=== PATIENT | female | born 1975 | race Hispanic/Latino ===

== ENCOUNTER 2018-05-20 08:36 | Emergency (ER) | payer SELFPAY ==
[2018-05-20 09:18] LABS: #Basophils 0.1 thou/uL (0.0-0.2); #Eosinphils 0.1 thou/uL (0.0-0.7); #Lymphocytes 1.4 thou/uL (1.20-3.40); #Monocytes 0.4 thou/uL (0.11-0.59); #Neutrophils 6.6 thou/uL (1.40-6.50); %Basophils 0.7 % (0.0-1.0); %Eosinophils 1.5 % (0.0-10.0); %Lymphocytes 16.6 % (21.0-51.0); %Monocytes 4.2 % (0.0-10.0); Hemoglobin 10.2 g/dL (12.0-16.0); Mean Corpuscular Hemoglobin 20.7 pg (27.0-31.0); Mean Platelet Volume 10.4 fL (7.4-10.4); Platelet Count 322 thou/uL (130-400); RBC Distribution Width 21.6 % (11.5-14.5); Red Blood Cell (RBC) Count 4.91 mill/uL (4.20-5.40); White Blood Cell (WBC) Count 8.6 thou/uL (4.8-10.8)
[2018-05-20 09:29] LABS: ALT (SGPT) 12 U/L (8-55); AST (SGOT) 17 U/L (5-34); Albumin 4.1 g/dL (3.5-5.0); Alkaline Phosphatase 72 U/L (40-150); Anion Gap 11 mmol/L (10-20); BUN (Urea Nitrogen) 13 mg/dL (7.0-18.7); Bilirubin, Total 0.6 mg/dL (0.2-1.2); Calc. Creatinine Clearance 0 mL/min (70-130); Calcium 8.6 mg/dL (7.8-10.44); Carbon Dioxide 22 mmol/L (22-29); Chloride 108 mmol/L (98-107); Estimated GFR-MDRD 86; Globulin 2.7 g/dL (2.4-3.5); Glucose 126 mg/dL (70-105); Potassium 3.6 mmol/L (3.5-5.1); Protein, Total 6.8 g/dL (6.0-8.3); Sodium 137 mmol/L (136-145)
[2018-05-20] MEDS ORDERED: Ondansetron HCl/PF 4 MG/2 ML Vial ONE (09:33)
[2018-05-20] MEDS ORDERED: Ketorolac Tromethamine 30 MG/ML VIAL ONE (09:33)
[2018-05-20 10:01] LABS: Anisocytosis SLIGHT = 6-15 cells (100X) (0-5/hpf); MDiff Complete? YES; Microcytosis MODERATE=15-30 cells (100X) (0-5/hpf); Polychromasia SLIGHT = 2-3 cells (100X) (0-2/hpf)
[2018-05-20 10:08] LABS: Bilirubin Negative (Negative); Blood, Urine Negative (Negative); Glucose, Urine (Dipstick) Negative (Negative); Leukocyte Negative (Negative); Nitrite Negative (Negative); Protein, Urine (Dipstick) Negative (Neg-Trace); Urobilinogen 0.2 mg/dL (0.2-1.0)
[2018-05-20 10:10] LABS: Clarity Clear (Clear); Specific Gravity, Urine 1.026 (1.002-1.036)
[2018-05-20 10:11] LABS: Pregnancy Test - Urine (BHCG) Negative (Negative); Pregu Control Background? CLEAR/WHITE (CLR/WHITE); Pregu Control Bar Appear? YES (CONTROL BAR); Specific Gravity 1.026 (1.002-1.036)
--- NOTE | 2018-05-20 10:59 | CT ---
CT ABDOMEN AND PELVIS WITH IV CONTRAST: HISTORY: Left lower quadrant pain. FINDINGS: The lung bases are clear. The patient is post cholecystectomy. The liver demonstrates changes of fa tty liver without mass. The spleen, pancreas, adrenal glands, and kidneys are normal. A normal-appe aring appendix is present. Uterus and right ovary are visualized. No free air, free fluid, or lymph adenopathy is seen. There is inflammatory change in the left lower quadrant anterior to the colon wh ich contains fat and thrombosed vein, consistent with epiploic appendicitis. No evidence of aneurysmal dilatation of the abdominal aorta is seen. There are mild degenerative asael nges in the spine. IMPRESSION: 1. Epiploic appendicitis in the left lower quadrant. 2. Fatty liver. POS: [facility]
[2018-05-20] MEDS ORDERED: ISOVUE-370 76%-LOCM 1 ML ONE (13:30)
== END 2018-05-20 10:58 | disposition home or self-care (01) ==
LOC: ERS 08:36
DX: K63.89 Other specified diseases of intestine (principal); G43.909 Migraine, unspecified, not intractable, without status migrainosus
CPT/HCPCS: 36415; 74177; 80053; 81003; 81025; 85025; 96374; 96375; J1885; J2405

== ENCOUNTER 2018-09-06 11:02 | Emergency (ER) | payer SELFPAY ==
[2018-09-06] MEDS ORDERED: Ondansetron PF 4 MG/2 ML Vial ONE (11:17)
[2018-09-06] MEDS ORDERED: Morphine 4 MG/ML VIAL ONE (11:17)
[2018-09-06 11:31] LABS: #Basophils 0.1 thou/uL (0.0-0.2); #Eosinphils 0.1 thou/uL (0.0-0.7); #Lymphocytes 1.6 thou/uL (1.20-3.40); #Monocytes 0.4 thou/uL (0.11-0.59); #Neutrophils 6.9 thou/uL (1.40-6.50); %Basophils 0.5 % (0.0-1.0); %Eosinophils 1.1 % (0.0-10.0); %Monocytes 4.8 % (0.0-10.0); %Neutrophils 75.6 % (42.0-75.0); Hemoglobin 11.4 g/dL (12.0-16.0); Mean Corpuscular HGB CONC 30.7 g/dL (32.0-36.0); Mean Corpuscular Hemoglobin 23.1 pg (27.0-31.0); Mean Corpuscular Volume 75.1 fL (78.0-98.0); Mean Platelet Volume 8.4 fL (7.4-10.4); Platelet Count 404 thou/uL (130-400); RBC Distribution Width 14.5 % (11.5-14.5); Red Blood Cell (RBC) Count 4.92 mill/uL (4.20-5.40); White Blood Cell (WBC) Count 9.1 thou/uL (4.8-10.8)
[2018-09-06 11:50] LABS: BHCG - Serum Negative (NEGATIVE); Pregs Control Background? CLEAR/WHITE (CLR/WHITE); Pregs Control Bar Appear? YES (CONTROL BAR)
[2018-09-06 12:09] LABS: ALT (SGPT) 14 U/L (8-55); AST (SGOT) 17 U/L (5-34); Albumin 4.4 g/dL (3.5-5.0); Alkaline Phosphatase 80 U/L (40-150); Anion Gap 10 mmol/L (10-20); BUN (Urea Nitrogen) 12 mg/dL (7.0-18.7); Bilirubin, Total 0.5 mg/dL (0.2-1.2); Calc. Creatinine Clearance 0 mL/min (70-130); Carbon Dioxide 24 mmol/L (22-29); Chloride 109 mmol/L (98-107); Estimated GFR-MDRD 88; Globulin 3.2 g/dL (2.4-3.5); Glucose 109 mg/dL (70-105); Lipase 44 U/L (8-78); Potassium 3.8 mmol/L (3.5-5.1); Protein, Total 7.6 g/dL (6.0-8.3); Sodium 139 mmol/L (136-145)
[2018-09-06] MEDS ORDERED: HYDROcodone/Acetaminophen 5/325 mg Tablet ONE (12:50)
[2018-09-06] MEDS ORDERED: metroNIDAZOLE 250 MG TAB ONE (12:50)
[2018-09-06 13:03] LABS: Bilirubin Negative (Negative); Blood, Urine Negative (Negative); Clarity CLEAR (Clear); Glucose, Urine (Dipstick) Negative (Negative); Leukocyte Trace (Negative); Nitrite Negative (Negative); Protein, Urine (Dipstick) Negative (Neg-Trace); Specific Gravity, Urine 1.044 (1.002-1.036)
[2018-09-06 13:05] LABS: Bacteria/HPF Rare-Few HPF (None Seen); Hyaline Casts/LPF 0-3 HYALINE CAST LPF (0-3 Hyaline); Pathc Cast-AUWi Flag 0.14 (0-2.49); RBC/HPF 0-3 HPF (0-3); Squamous Epithelial 0-3 HPF (0-3); WBC/HPF 0-3 HPF (0-3)
--- NOTE | 2018-09-06 13:22 | CT ---
ABDOMEN CT WITH CONTRAST PELVIC CT WITH CONTRAST: Date: 09/06/18 HISTORY: Two days of left lower quadrant pain, worsening. COMPARISON: 07/09/15. FINDINGS: CT ABDOMEN: Clear lung bases. Normal heart size. No significant pericardial fluid. The descending thoracic aorta and abdominal aorta have a normal caliber. No periaortic fat stranding. Gallbladder is surgically absent. Portal vein is patent. Diffuse hypoattenuation of the liver due to hepatic steatosis. No hepatic masses. Spleen, pancreas, a nd adrenal glands are unremarkable. No gastrohepatic, retrocrural, or periportal lymphadenopathy. Small umbilical hernia containing mesenteric fat. No mesenteric mass, lymphadenopathy, or free air. T here is stranding of the left lower quadrant mesentery adjacent to the mid to distal descending colon . Symmetric enhancement of the kidneys. Redemonstration of a right extrarenal pelvis. Bilaterally, no o bstructive uropathy. Limited evaluation of the alimentary canal by the lack of oral contrast. No evidence of small bowel o bstruction. Ileocecal junction is normal. Normal caliber appendix emanates from the cecal apex. There is no evidence of significant colonic mucosal thickening. There is pericolonic fat stranding involvi ng the mid to distal descending colon. Epiploic appendagitis is suspected. PELVIC CT: Heterogeneous and enlarged uterus is identified. The possibility of uterine leiomyoma cannot be compl etely excluded. Unremarkable urinary bladder. No pelvic lymphadenopathy, free air, or free fluid. IMPRESSION: 1. Stranding involving the left lower quadrant pericolonic fat which may represent epiploic appendag itis. No evidence of abscess or bowel perforation. 2. Normal caliber appendix. 3. Slightly enlarged heterogeneous uterus. Correlate for uterine leiomyoma with nonemergent pelvic u ltrasound. POS: [facility]
[2018-09-06] MEDS ORDERED: Iopamidol 370 76% 100 ML VIAL ONE (16:55)
== END 2018-09-06 13:10 | disposition home or self-care (01) ==
LOC: ERS 11:02
DX: K63.89 Other specified diseases of intestine (principal); G43.909 Migraine, unspecified, not intractable, without status migrainosus
CPT/HCPCS: 74177; 80053; 81003; 81015; 83690; 84703; 85025; 87077; 87086; 96361; 96374; 96375; J1956; J2270; J2405

== ENCOUNTER 2019-07-10 09:07 | Outpatient (CLI) | payer MEDICAID ==
--- NOTE | 2019-07-10 10:36 | MMO ---
Bilateral MAMMO Bilat Screen [facility]. CLINICAL HISTORY: Patient is 44 years old and is seen for screening. The patient has no family history of breast cancer. The patient has no personal history of cancer. VIEWS: The views performed were: bilateral craniocaudal and bilateral mediolateral oblique. FILMS COMPARED: The present examination has been compared to prior imaging studies performed at [facility] on 06/09/2012 and 04/16/2017. This study has been interpreted with the assistance of computer-aided detection. MAMMOGRAM FINDINGS: The breasts are heterogeneously dense, which could obscure a lesion on mammography. There are no suspicious masses, suspicious calcifications, or new areas of architectural distortion. IMPRESSION: THERE IS NO MAMMOGRAPHIC EVIDENCE OF MALIGNANCY. A ROUTINE FOLLOW-UP MAMMOGRAM IN 1 YEAR IS RECOMMENDED. ACR BI-RADS Category 1 - Negative MAMMOGRAPHY NOTE: 1. A negative mammogram report should not delay a biopsy if a dominant of clinically suspicious mass is present. 2. Approximately 10% to 15% of breast cancers are not detected by mammography. 3. Adenosis and dense breasts may obscure an underlying neoplasm. Reported by: DEZ WHEELER MD Electonically Signed: [id number]
== END 2019-07-10 09:08 | disposition home or self-care (01) ==
LOC: BICMAMMO 09:07
DX: Z12.31 Encounter for screening mammogram for malignant neoplasm of breast (principal)
CPT/HCPCS: 77067

== ENCOUNTER 2019-10-23 10:49 | Emergency (ER) | payer MEDICAID ==
[2019-10-23] MEDS ORDERED: Acetaminophen 500 MG TAB ONE (12:03)
== END 2019-10-23 13:04 | disposition home or self-care (01) ==
LOC: ERS 10:49
DX: J06.9 Acute upper respiratory infection, unspecified (principal); G43.909 Migraine, unspecified, not intractable, without status migrainosus
CPT/HCPCS: 87804; 99283

== ENCOUNTER 2019-11-14 07:02 | Emergency (ER) | payer MEDICAID ==
[2019-11-14] MEDS ORDERED: Ondansetron ODT 4 MG TAB ONE (07:39)
[2019-11-14] MEDS ORDERED: Ibuprofen 200 MG TAB ONE (07:39)
[2019-11-14] MEDS ORDERED: Acetaminophen 500 MG TAB ONE (08:19)
== END 2019-11-14 09:15 | disposition home or self-care (01) ==
LOC: ERS 07:02
DX: J11.1 Influenza due to unidentified influenza virus with other respiratory manifestations (principal)
CPT/HCPCS: 87804; 99283; Q0162

== ENCOUNTER 2020-07-12 10:40 | Outpatient (CLI) | payer MEDICAID ==
--- NOTE | 2020-07-12 12:02 | MMO ---
Bilateral MAMMO Bilat Screen [facility]. CLINICAL HISTORY: Patient is 45 years old and is seen for screening. The patient has no family history of breast cancer. The patient has no personal history of cancer. VIEWS: The views performed were: bilateral craniocaudal and bilateral mediolateral oblique. FILMS COMPARED: The present examination has been compared to prior imaging studies performed at [facility] on 06/09/2012, 04/16/2017 and 07/10/2019. This study has been interpreted with the assistance of computer-aided detection. MAMMOGRAM FINDINGS: The breasts are heterogeneously dense, which could obscure a lesion on mammography. There are no suspicious masses, suspicious calcifications, or new areas of architectural distortion. IMPRESSION: THERE IS NO MAMMOGRAPHIC EVIDENCE OF MALIGNANCY. A ROUTINE FOLLOW-UP MAMMOGRAM IN 1 YEAR IS RECOMMENDED. ACR BI-RADS Category 1 - Negative MAMMOGRAPHY NOTE: 1. A negative mammogram report should not delay a biopsy if a dominant of clinically suspicious mass is present. 2. Approximately 10% to 15% of breast cancers are not detected by mammography. 3. Adenosis and dense breasts may obscure an underlying neoplasm. Reported by: SANG BRADFORD MD Electonically Signed: [id number]
== END 2020-07-12 10:41 | disposition home or self-care (01) ==
LOC: BICMAMMO 10:40
PROVIDERS: ATTEND Nurse Practitioner Family
DX: Z12.31 Encounter for screening mammogram for malignant neoplasm of breast (principal)
CPT/HCPCS: 77067

== ENCOUNTER 2020-10-16 17:57 | Emergency (ER) | payer MEDICAID, SELFPAY ==
[2020-10-16] MEDS ORDERED: diphenhydrAMINE 50 MG/ML VIAL ONE (18:44)
[2020-10-16] MEDS ORDERED: Metoclopramide HCl 10 MG/2 ML VIAL ONE (18:44)
== END 2020-10-16 21:18 | disposition home or self-care (01) ==
LOC: ERS 17:57
DX: G43.909 Migraine, unspecified, not intractable, without status migrainosus (principal)
CPT/HCPCS: 96365; 96375; J1200; J2765

== ENCOUNTER 2021-08-08 08:54 | Outpatient (CLI) | payer MEDICAID | END 2021-08-08 08:55 | disposition home or self-care (01) | LOC: BICMAMMO 08:54 | PROVIDERS: ATTEND Nurse Practitioner Family | DX: Z12.31 Encounter for screening mammogram for malignant neoplasm of breast (principal) | CPT/HCPCS: 77066; G0279 ==

== ENCOUNTER 2022-02-06 13:37 | Outpatient (CLI) | payer MEDICAID | END 2022-02-06 13:38 | disposition home or self-care (01) | LOC: BICULT 13:37 | PROVIDERS: ATTEND Nurse Practitioner Women's Health | DX: N93.9 Abnormal uterine and vaginal bleeding, unspecified (principal); N88.8 Other specified noninflammatory disorders of cervix uteri | CPT/HCPCS: 76856; 93976 ==

== ENCOUNTER 2022-09-08 11:08 | Outpatient (CLI) | payer MEDICAID | END 2022-09-08 11:09 | disposition home or self-care (01) | LOC: BICMAMMO 11:08 | PROVIDERS: ATTEND Nurse Practitioner Family | DX: Z12.31 Encounter for screening mammogram for malignant neoplasm of breast (principal) | CPT/HCPCS: 77067 ==

== ENCOUNTER 2022-11-27 10:12 | Emergency (ER) | payer MEDICAID, SELFPAY ==
[2022-11-27 10:56] LABS: #Eosinphils 0.1 thou/uL (0.0-0.7); #Lymphocytes 1.7 thou/uL (1.20-3.40); #Monocytes 0.4 thou/uL (0.11-0.59); #Neutrophils 6.2 thou/uL (1.40-6.50); %Basophils 0.3 % (0.0-1.0); %Eosinophils 1.3 % (0.0-10.0); %Lymphocytes 20.5 % (21.0-51.0); %Monocytes 4.9 % (0.0-10.0); %Neutrophils 72.9 % (42.0-75.0); Hemoglobin 15.6 g/dL (12.0-16.0); Mean Corpuscular HGB CONC 33.5 g/dL (32.0-36.0); Mean Corpuscular Hemoglobin 29.2 pg (27.0-31.0); Mean Corpuscular Volume 87.1 fl (78.0-98.0); Mean Platelet Volume 7.9 fL (7.4-10.4); Platelet Count 318 10x3/uL (130-400); RBC Distribution Width 12.7 % (11.5-14.5); Red Blood Cell (RBC) Count 5.33 mill/uL (4.20-5.40); White Blood Cell (WBC) Count 8.4 10x3/uL (4.8-10.8)
[2022-11-27] MEDS ORDERED: Ondansetron PF 4 MG/2 ML Vial ONE (11:09)
[2022-11-27] MEDS ORDERED: Morphine 4 MG/ML VIAL ONE (11:09)
[2022-11-27 11:18] LABS: ALT (SGPT) 22 U/L (8-55); AST (SGOT) 22 U/L (5-34); Albumin 4.3 g/dL (3.5-5.0); Alkaline Phosphatase 89 U/L (40-110); Anion Gap 12 mmol/L (10-20); BUN (Urea Nitrogen) 9 mg/dL (7.0-18.7); Bilirubin, Total 0.4 mg/dL (0.2-1.2); Calc. Creatinine Clearance 0 mL/min (70-130); Calcium 8.8 mg/dL (7.8-10.44); Carbon Dioxide 18 mmol/L (22-29); Chloride 111 mmol/L (98-107); Estimated GFR 111; Globulin 2.9 g/dL (2.4-3.5); Glucose 110 mg/dL (70-105); Lipase 50 U/L (8-78); Potassium 3.7 mmol/L (3.5-5.1); Protein, Total 7.2 g/dL (6.0-8.3); Sodium 137 mmol/L (136-145)
[2022-11-27 12:33] LABS: SARS-CoV-2 NAA Rapid Test Not Detected (NotDetected)
[2022-11-27] MEDS ORDERED: Lidocaine Viscous Sol 2% 15 ml UD Cup ONE (13:35)
[2022-11-27] MEDS ORDERED: Mag-Al 1200 mg/1200 mg/30 ML UDCUP ONE (13:35)
[2022-11-27 14:02] LABS: Troponin I Less than 0.010 ng/mL (< 0.028)
== END 2022-11-27 15:02 | disposition home or self-care (01) ==
LOC: ERS 10:12
DX: R07.9 Chest pain, unspecified (principal); Z20.822 Contact with and (suspected) exposure to COVID-19
CPT/HCPCS: 36415; 71045; 80053; 83690; 84484; 85025; 85379; 93005; 94760; 96374; 96375; J2270; J2405

== ENCOUNTER 2023-06-17 09:53 | Outpatient (CLI) | payer MEDICAID | END 2023-06-17 09:54 | disposition home or self-care (01) | LOC: ULT 09:53 | PROVIDERS: ATTEND Nurse Practitioner Women's Health | DX: R10.2 Pelvic and perineal pain (principal) | CPT/HCPCS: 76856 ==

== ENCOUNTER 2023-09-09 21:43 | Emergency (ER) | payer SELFPAY, OTHER ==
[2023-09-09 22:47] LABS: #Eosinphils 0.1 thou/uL (0.0-0.7); #Monocytes 0.6 thou/uL (0.11-0.59); #Neutrophils 6.8 thou/uL (1.40-6.50); %Basophils 0.3 % (0.0-1.0); %Eosinophils 1.3 % (0.0-10.0); %Lymphocytes 22.4 % (21.0-51.0); %Monocytes 6.3 % (0.0-10.0); %Neutrophils 69.3 % (42.0-75.0); Hematocrit 47.1 % (36.0-47.0); Hemoglobin 16.5 g/dL (12.0-16.0); Mean Corpuscular Hemoglobin 30.2 pg (27.0-31.0); Mean Corpuscular Volume 86.1 fl (78.0-98.0); Mean Platelet Volume 10.2 fL (7.4-10.4); Platelet Count 308 10x3/uL (130-400); RBC Distribution Width 12.7 % (11.5-14.5); Red Blood Cell (RBC) Count 5.47 mill/uL (4.20-5.40); White Blood Cell (WBC) Count 9.9 10x3/uL (4.8-10.8)
[2023-09-09] MEDS ORDERED: Acetaminophen 500 MG TAB ONE (22:53)
[2023-09-09] MEDS ORDERED: Prochlorperazine 10 MG/2 ML VIAL ONE (22:54)
[2023-09-09] MEDS ORDERED: diphenhydrAMINE 50 MG/ML VIAL ONE (22:54)
[2023-09-09 23:14] LABS: Troponin I Less than 0.010 ng/mL (< 0.028)
[2023-09-09 23:52] LABS: Chloride 107 mmol/L (98-107); Sodium 136 mmol/L (136-145)
[2023-09-09 23:53] LABS: Glucose 90 mg/dL (70-105)
[2023-09-09 23:54] LABS: Bacteria/HPF None Seen HPF (None Seen); Bilirubin Negative (Negative); Blood, Urine Negative (Negative); CAUTI Indications for Culture Alt mental st,lethar; Clarity Clear (Clear); Glucose, Urine (Dipstick) Normal (Negative); Ketone, Urine Negative (Negative); Leukocyte Negative Leu/uL (Negative); Nitrite Negative (Negative); Protein, Urine (Dipstick) Negative (Neg-Trace); RBC/HPF 0-3 HPF (0-3); Squamous Epithelial 0-3 HPF (0-3); Urobilinogen Normal mg/dL (Less than 2); WBC/HPF 0-3 HPF (0-3)
[2023-09-09 23:55] LABS: Anion Gap 17 mmol/L (10-20); Bilirubin, Total 0.2 mg/dL (0.2-1.2); Carbon Dioxide 19 mmol/L (22-29)
[2023-09-09 23:56] LABS: Alkaline Phosphatase 116 U/L (40-110)
[2023-09-09 23:57] LABS: Calc. Creatinine Clearance 0 mL/min (70-130); Estimated GFR 88
[2023-09-09 23:58] LABS: BUN (Urea Nitrogen) 13 mg/dL (7.0-18.7)
[2023-09-09 23:59] LABS: ALT (SGPT) 20 U/L (8-55); AST (SGOT) 64 U/L (5-34)
[2023-09-10 00:08] LABS: Potassium 3.6 mmol/L (3.5-5.1)
[2023-09-10 00:16] LABS: Albumin 3.9 g/dL (3.5-5.0); Protein, Total 6.6 g/dL (6.0-8.3)
[2023-09-10 00:17] LABS: Globulin 2.7 g/dL (2.4-3.5)
[2023-09-10 00:38] LABS: Urine Culture Reflex No No
== END 2023-09-10 02:16 | disposition home or self-care (01) ==
LOC: ERS 21:43
DX: G43.909 Migraine, unspecified, not intractable, without status migrainosus (principal); I10 Essential (primary) hypertension
CPT/HCPCS: 36415; 70450; 71045; 80053; 81001; 84484; 85025; 96374; 96375; J0780; J1200

== ENCOUNTER 2023-10-28 09:15 | Inpatient (IN) | payer MEDICAID, SELFPAY ==
[2023-10-28] MEDS ORDERED: Ondansetron PF 4 MG/2 ML Vial ONE ×2 (10:12→13:01)
[2023-10-28] MEDS ORDERED: Morphine 4 MG/ML VIAL ONE ×2 (10:12→13:01)
[2023-10-28 10:40] LABS: #Eosinphils 0.1 thou/uL (0.0-0.7); #Monocytes 0.6 thou/uL (0.11-0.59); #Neutrophils 8.9 thou/uL (1.40-6.50); %Basophils 0.3 % (0.0-1.0); %Eosinophils 1.2 % (0.0-10.0); %Lymphocytes 14.2 % (21.0-51.0); %Monocytes 5.1 % (0.0-10.0); %Neutrophils 78.8 % (42.0-75.0); Hematocrit 42.7 % (36.0-47.0); Hemoglobin 15.1 g/dL (12.0-16.0); Mean Corpuscular HGB CONC 35.4 g/dL (32.0-36.0); Mean Corpuscular Hemoglobin 29.9 pg (27.0-31.0); Mean Corpuscular Volume 84.6 fl (78.0-98.0); Platelet Count 317 10x3/uL (130-400); RBC Distribution Width 12.8 % (11.5-14.5); Red Blood Cell (RBC) Count 5.05 mill/uL (4.20-5.40); White Blood Cell (WBC) Count 11.3 10x3/uL (4.8-10.8)
[2023-10-28 10:40] LABS: ALT (SGPT) 20 U/L (8-55); AST (SGOT) 18 U/L (5-34); Albumin 4.1 g/dL (3.5-5.0); Alkaline Phosphatase 91 U/L (40-110); Anion Gap 14 mmol/L (10-20); BUN (Urea Nitrogen) 12 mg/dL (7.0-18.7); Bilirubin, Total 0.5 mg/dL (0.2-1.2); Calc. Creatinine Clearance 0 mL/min (70-130); Calcium 8.7 mg/dL (7.8-10.44); Carbon Dioxide 18 mmol/L (22-29); Chloride 110 mmol/L (98-107); Estimated GFR 95; Globulin 2.9 g/dL (2.4-3.5); Glucose 151 mg/dL (70-105); Lipase 46 U/L (8-78); Sodium 138 mmol/L (136-145)
[2023-10-28] MEDS ORDERED: Piperacillin/Tazobactam 4.5 GM VIAL ONE (10:57)
[2023-10-28] MEDS ORDERED: Sodium Chloride 0.9% 100 ML ONE (10:58)
[2023-10-28] MEDS ORDERED: Ketorolac Tromethamine 30 MG (1 mL) VIAL ONE (12:18)
[2023-10-28 14:06] LABS: Bacteria/HPF None Seen HPF (None Seen); Bilirubin Negative (Negative); Blood, Urine Negative (Negative); CAUTI Indications for Culture Pelvic or flank pain; Clarity Clear (Clear); Glucose, Urine (Dipstick) Normal (Negative); Ketone, Urine Negative (Negative); Leukocyte Negative Leu/uL (Negative); Nitrite Negative (Negative); Protein, Urine (Dipstick) Negative (Neg-Trace); RBC/HPF 0-3 HPF (0-3); Squamous Epithelial None Seen HPF (0-3); Urobilinogen Normal mg/dL (Less than 2); WBC/HPF 0-3 HPF (0-3)
[2023-10-28 14:09] LABS: Specific Gravity, Urine 1.046 (1.002-1.036)
[2023-10-28 14:10] LABS: Urine Culture Reflex No No
[2023-10-28] MEDS ORDERED: Iopamidol-370 76% 500 ML MDV (1 ML CHARGE) ONE (14:29)
[2023-10-28] MEDS ORDERED: Acetaminophen 325 MG TAB PO PRN (15:52)
[2023-10-28 16:34] VITALS: BMI 37.0
[2023-10-28] MEDS: Sodium Chloride 0.9% 1,000 ML IV SCH ×2 (17:16→21:18)
[2023-10-28] MEDS: Morphine 4 MG/ML VIAL SLOW IVP PRN ×2 (17:32→21:25)
[2023-10-28] MEDS: Ondansetron PF 4 MG/2 ML Vial IVP PRN (19:36)
[2023-10-28] MEDS: Ciprofloxacin Lactate/D5W 400 MG in Premix 1 BAG IVPB SCH (19:49)
[2023-10-28] MEDS: Ketorolac Tromethamine 30 MG (1 mL) VIAL IVP PRN (20:03)
[2023-10-28] MEDS: metroNIDAZOLE 500 MG in Premix 1 BAG IVPB SCH (21:18)
[2023-10-28] MEDS ORDERED: Ondansetron PF 4 MG/2 ML Vial IVP SCH (21:30)
[2023-10-29] MEDS: Ketorolac Tromethamine 30 MG (1 mL) VIAL IVP PRN ×2 (03:23→08:57)
[2023-10-29] MEDS: Sodium Chloride 0.9% 1,000 ML IV SCH ×4 (05:11→21:53)
[2023-10-29] MEDS: metroNIDAZOLE 500 MG in Premix 1 BAG IVPB SCH ×3 (05:38→21:48)
[2023-10-29] MEDS: Morphine 4 MG/ML VIAL SLOW IVP PRN ×3 (05:41→16:10)
[2023-10-29 06:40] LABS: #Eosinphils 0.1 thou/uL (0.0-0.7); #Monocytes 0.8 thou/uL (0.11-0.59); #Neutrophils 10.9 thou/uL (1.40-6.50); %Basophils 0.2 % (0.0-1.0); %Eosinophils 0.6 % (0.0-10.0); %Lymphocytes 10.7 % (21.0-51.0); %Monocytes 6.1 % (0.0-10.0); %Neutrophils 81.9 % (42.0-75.0); Hematocrit 38.2 % (36.0-47.0); Hemoglobin 13.1 g/dL (12.0-16.0); Mean Corpuscular HGB CONC 34.3 g/dL (32.0-36.0); Mean Platelet Volume 10.1 fL (7.4-10.4); Platelet Count 279 10x3/uL (130-400); RBC Distribution Width 12.7 % (11.5-14.5); Red Blood Cell (RBC) Count 4.37 mill/uL (4.20-5.40); White Blood Cell (WBC) Count 13.3 10x3/uL (4.8-10.8)
[2023-10-29 06:45] LABS: Mean Corpuscular Volume 87.4 fl (78.0-98.0)
[2023-10-29 07:02] LABS: Anion Gap 10 mmol/L (10-20); BUN (Urea Nitrogen) 6 mg/dL (7.0-18.7); Calc. Creatinine Clearance 137 mL/min (70-130); Calcium 8.3 mg/dL (7.8-10.44); Carbon Dioxide 21 mmol/L (22-29); Chloride 110 mmol/L (98-107); Estimated GFR 104; Glucose 95 mg/dL (70-105); Potassium 3.7 mmol/L (3.5-5.1); Sodium 137 mmol/L (136-145)
[2023-10-29] MEDS: Ciprofloxacin Lactate/D5W 400 MG in Premix 1 BAG IVPB SCH ×2 (08:56→20:32)
[2023-10-29] MEDS: Enoxaparin 40 MG (0.4 mL) SYRINGE SC SCH (08:57)
[2023-10-29] MEDS: traMADol HCl 50 MG TAB PO PRN ×2 (14:02→21:47)
[2023-10-29] MEDS: Ondansetron PF 4 MG/2 ML Vial IVP PRN (16:10)
[2023-10-29] MEDS ORDERED: hydrOXYzine 25 MG TAB PO SCH (19:30)
[2023-10-29] MEDS: Melatonin 3 MG TAB PO PRN (20:39)
[2023-10-30] MEDS: metroNIDAZOLE 500 MG in Premix 1 BAG IVPB SCH ×3 (05:19→21:58)
[2023-10-30] MEDS: Sodium Chloride 0.9% 1,000 ML IV SCH ×3 (05:20→17:43)
[2023-10-30 05:55] LABS: #Eosinphils 0.1 thou/uL (0.0-0.7); #Monocytes 0.5 thou/uL (0.11-0.59); #Neutrophils 5.2 thou/uL (1.40-6.50); %Basophils 0.3 % (0.0-1.0); %Eosinophils 1.3 % (0.0-10.0); %Lymphocytes 22.4 % (21.0-51.0); %Monocytes 6.5 % (0.0-10.0); Hematocrit 37.8 % (36.0-47.0); Mean Corpuscular HGB CONC 34.4 g/dL (32.0-36.0); Mean Corpuscular Hemoglobin 29.8 pg (27.0-31.0); Mean Corpuscular Volume 86.7 fl (78.0-98.0); Mean Platelet Volume 9.8 fL (7.4-10.4); Platelet Count 270 10x3/uL (130-400); RBC Distribution Width 12.5 % (11.5-14.5); Red Blood Cell (RBC) Count 4.36 mill/uL (4.20-5.40); White Blood Cell (WBC) Count 7.5 10x3/uL (4.8-10.8)
[2023-10-30 06:18] LABS: Anion Gap 10 mmol/L (10-20); BUN (Urea Nitrogen) 5 mg/dL (7.0-18.7); Calc. Creatinine Clearance 135 mL/min (70-130); Calcium 8.3 mg/dL (7.8-10.44); Carbon Dioxide 21 mmol/L (22-29); Chloride 110 mmol/L (98-107); Estimated GFR 103; Glucose 88 mg/dL (70-105); Potassium 3.6 mmol/L (3.5-5.1); Sodium 137 mmol/L (136-145)
[2023-10-30] MEDS: traMADol HCl 50 MG TAB PO PRN ×3 (09:02→20:13)
[2023-10-30] MEDS: Enoxaparin 40 MG (0.4 mL) SYRINGE SC SCH (09:02)
[2023-10-30] MEDS: Ciprofloxacin Lactate/D5W 400 MG in Premix 1 BAG IVPB SCH ×2 (09:02→20:10)
[2023-10-30] MEDS: busPIRone HCl 5 MG TAB PO SCH (09:03)
[2023-10-30] MEDS: Ondansetron PF 4 MG/2 ML Vial IVP PRN (11:04)
[2023-10-30] MEDS: Melatonin 3 MG TAB PO PRN (20:11)
[2023-10-31] MEDS: Sodium Chloride 0.9% 1,000 ML IV SCH ×4 (01:00→20:17)
[2023-10-31] MEDS: metroNIDAZOLE 500 MG in Premix 1 BAG IVPB SCH ×3 (05:45→21:43)
[2023-10-31 05:52] LABS: #Eosinphils 0.1 thou/uL (0.0-0.7); #Monocytes 0.6 thou/uL (0.11-0.59); #Neutrophils 5.2 thou/uL (1.40-6.50); %Basophils 0.4 % (0.0-1.0); %Eosinophils 1.8 % (0.0-10.0); %Lymphocytes 22.6 % (21.0-51.0); %Monocytes 7.9 % (0.0-10.0); %Neutrophils 66.8 % (42.0-75.0); Hematocrit 40.8 % (36.0-47.0); Hemoglobin 14.1 g/dL (12.0-16.0); Mean Corpuscular HGB CONC 34.6 g/dL (32.0-36.0); Mean Corpuscular Hemoglobin 29.7 pg (27.0-31.0); Mean Corpuscular Volume 86.1 fl (78.0-98.0); Mean Platelet Volume 9.9 fL (7.4-10.4); Platelet Count 327 10x3/uL (130-400); RBC Distribution Width 12.2 % (11.5-14.5); Red Blood Cell (RBC) Count 4.74 mill/uL (4.20-5.40); White Blood Cell (WBC) Count 7.7 10x3/uL (4.8-10.8)
[2023-10-31 06:18] LABS: Anion Gap 12 mmol/L (10-20); BUN (Urea Nitrogen) 4 mg/dL (7.0-18.7); Calc. Creatinine Clearance 132 mL/min (70-130); Calcium 8.7 mg/dL (7.8-10.44); Carbon Dioxide 21 mmol/L (22-29); Chloride 108 mmol/L (98-107); Estimated GFR 99; Glucose 99 mg/dL (70-105); Potassium 3.8 mmol/L (3.5-5.1); Sodium 137 mmol/L (136-145)
[2023-10-31] MEDS: busPIRone HCl 5 MG TAB PO SCH (08:15)
[2023-10-31] MEDS: Enoxaparin 40 MG (0.4 mL) SYRINGE SC SCH (08:15)
[2023-10-31] MEDS: Ciprofloxacin Lactate/D5W 400 MG in Premix 1 BAG IVPB SCH ×2 (08:15→20:13)
[2023-10-31] MEDS: traMADol HCl 50 MG TAB PO PRN (12:34)
[2023-10-31] MEDS: Ondansetron PF 4 MG/2 ML Vial IVP PRN (12:34)
[2023-10-31] MEDS: Melatonin 3 MG TAB PO PRN (20:14)
[2023-10-31 20:24] VITALS: BP 135/86
[2023-11-01] MEDS: Sodium Chloride 0.9% 1,000 ML IV SCH (03:35)
[2023-11-01] MEDS: metroNIDAZOLE 500 MG in Premix 1 BAG IVPB SCH (05:35)
[2023-11-01 06:18] LABS: #Eosinphils 0.1 thou/uL (0.0-0.7); #Monocytes 0.5 thou/uL (0.11-0.59); #Neutrophils 5.3 thou/uL (1.40-6.50); %Basophils 0.3 % (0.0-1.0); %Eosinophils 1.5 % (0.0-10.0); %Lymphocytes 19.7 % (21.0-51.0); %Monocytes 6.5 % (0.0-10.0); %Neutrophils 71.5 % (42.0-75.0); Hematocrit 41.7 % (36.0-47.0); Hemoglobin 14.4 g/dL (12.0-16.0); Mean Corpuscular HGB CONC 34.5 g/dL (32.0-36.0); Mean Corpuscular Hemoglobin 29.3 pg (27.0-31.0); Mean Corpuscular Volume 84.8 fl (78.0-98.0); Mean Platelet Volume 9.9 fL (7.4-10.4); Platelet Count 343 10x3/uL (130-400); RBC Distribution Width 12.5 % (11.5-14.5); Red Blood Cell (RBC) Count 4.92 mill/uL (4.20-5.40); White Blood Cell (WBC) Count 7.4 10x3/uL (4.8-10.8)
[2023-11-01 06:44] LABS: Anion Gap 14 mmol/L (10-20); BUN (Urea Nitrogen) 6 mg/dL (7.0-18.7); Calc. Creatinine Clearance 127 mL/min (70-130); Calcium 8.4 mg/dL (7.8-10.44); Carbon Dioxide 17 mmol/L (22-29); Chloride 110 mmol/L (98-107); Estimated GFR 95; Glucose 91 mg/dL (70-105); Potassium 3.5 mmol/L (3.5-5.1); Sodium 137 mmol/L (136-145)
[2023-11-01 08:12] VITALS: TEMP 98.3
[2023-11-01] MEDS: busPIRone HCl 5 MG TAB PO SCH (08:51)
[2023-11-01] MEDS: Ciprofloxacin Lactate/D5W 400 MG in Premix 1 BAG IVPB SCH (08:51)
[2023-11-01] MEDS: Enoxaparin 40 MG (0.4 mL) SYRINGE SC SCH (08:51)
[2023-11-01] MEDS: Ondansetron PF 4 MG/2 ML Vial IVP PRN (08:54)
== END 2023-11-01 11:26 | disposition home or self-care (01) | DRG 392 ==
LOC: ERS 09:15 → T4-A 14:39 → OBSVTOIN 10-29 11:28
PROVIDERS: ADMIT Internal Medicine; ATTEND Internal Medicine
DX: K57.32 Diverticulitis of large intestine without perforation or abscess without bleeding (principal); I10 Essential (primary) hypertension; G43.909 Migraine, unspecified, not intractable, without status migrainosus; Z98.51 Tubal ligation status; Z90.89 Acquired absence of other organs; Z90.49 Acquired absence of other specified parts of digestive tract
CPT/HCPCS: 36415; 74177; 80048; 80053; 81001; 83605; 83690; 85025; 96365; 96372; 96375; 96376; G0378; J0744; J1650; J1885; J2270; J2405; J2543; J3490; J7050; Q9967

== ENCOUNTER 2023-11-10 09:07 | Emergency (ER) | payer MEDICAID, SELFPAY ==
[2023-11-10] MEDS ORDERED: Iopamidol-370 76% 500 ML MDV (1 ML CHARGE) ONE (09:15)
[2023-11-10] MEDS ORDERED: Morphine 4 MG/ML VIAL ONE ×2 (10:47→14:12)
[2023-11-10] MEDS ORDERED: Ondansetron PF 4 MG/2 ML Vial ONE ×2 (10:47→13:18)
[2023-11-10] MEDS ORDERED: Pantoprazole 40 MG VIAL ONE (10:48)
[2023-11-10 11:01] LABS: #Eosinphils 0.1 thou/uL (0.0-0.7); #Monocytes 0.4 thou/uL (0.11-0.59); #Neutrophils 5.7 thou/uL (1.40-6.50); %Basophils 0.5 % (0.0-1.0); %Lymphocytes 22.3 % (21.0-51.0); %Monocytes 5.4 % (0.0-10.0); %Neutrophils 70.4 % (42.0-75.0); Hematocrit 44.3 % (36.0-47.0); Hemoglobin 15.7 g/dL (12.0-16.0); Mean Corpuscular HGB CONC 35.4 g/dL (32.0-36.0); Mean Corpuscular Hemoglobin 29.8 pg (27.0-31.0); Mean Corpuscular Volume 84.1 fl (78.0-98.0); Platelet Count 344 10x3/uL (130-400); RBC Distribution Width 13.1 % (11.5-14.5); Red Blood Cell (RBC) Count 5.27 mill/uL (4.20-5.40); White Blood Cell (WBC) Count 8.2 10x3/uL (4.8-10.8)
[2023-11-10 11:13] LABS: BHCG - Serum Negative (NEGATIVE); Pregs Control Background? CLEAR/WHITE (CLR/WHITE); Pregs Control Bar Appear? YES (CONTROL BAR)
[2023-11-10 11:25] LABS: Troponin I Less than 0.010 ng/mL (< 0.028)
[2023-11-10 12:10] LABS: Albumin 3.8 g/dL (3.5-5.0)
[2023-11-10 12:11] LABS: Chloride 109 mmol/L (98-107); Potassium 4.2 mmol/L (3.5-5.1); Sodium 137 mmol/L (136-145)
[2023-11-10 12:12] LABS: Calcium 8.4 mg/dL (7.8-10.44)
[2023-11-10 12:13] LABS: Globulin 2.5 g/dL (2.4-3.5); Glucose 89 mg/dL (70-105); Protein, Total 6.3 g/dL (6.0-8.3)
[2023-11-10 12:14] LABS: Anion Gap 11 mmol/L (10-20); Carbon Dioxide 21 mmol/L (22-29)
[2023-11-10 12:15] LABS: Alkaline Phosphatase 65 U/L (40-110); Bilirubin, Total 0.5 mg/dL (0.2-1.2)
[2023-11-10 12:16] LABS: Calc. Creatinine Clearance 0 mL/min (70-130); Estimated GFR 108
[2023-11-10 12:17] LABS: BUN (Urea Nitrogen) 7 mg/dL (7.0-18.7)
[2023-11-10 12:18] LABS: AST (SGOT) 16 U/L (5-34)
[2023-11-10 12:19] LABS: ALT (SGPT) 11 U/L (8-55); Lipase 41 U/L (8-78)
[2023-11-10 13:09] LABS: Bacteria/HPF None Seen HPF (None Seen); Bilirubin Negative (Negative); Blood, Urine Negative (Negative); CAUTI Indications for Culture Pelvic or flank pain; Clarity Clear (Clear); Glucose, Urine (Dipstick) Normal (Negative); Ketone, Urine Negative (Negative); Leukocyte Negative Leu/uL (Negative); Nitrite Negative (Negative); Protein, Urine (Dipstick) Negative (Neg-Trace); RBC/HPF 0-3 HPF (0-3); Specific Gravity, Urine 1.035 (1.002-1.036); Squamous Epithelial 0-3 HPF (0-3); Urobilinogen Normal mg/dL (Less than 2); WBC/HPF 0-3 HPF (0-3)
[2023-11-10 13:20] LABS: Urine Culture Reflex No No
== END 2023-11-10 14:14 | disposition home or self-care (01) ==
LOC: ERS 09:07
DX: K57.92 Diverticulitis of intestine, part unspecified, without perforation or abscess without bleeding (principal); I10 Essential (primary) hypertension
CPT/HCPCS: 36415; 71045; 74177; 80053; 81001; 83605; 83690; 84484; 84703; 85025; 93005; 96361; 96374; 96375; 96376; C9113; J2270; J2405; Q9967